=== PATIENT | female | born 1980 | race Caucasian/White ===

== ENCOUNTER 2022-08-18 23:08 | Emergency (ER) | payer BC ==
[~2022-08-18] VITALS: Ht 157.5 cm; Wt 65.8 kg
[2022-08-18 23:32] VITALS: BP 149/99
--- NOTE | 2022-08-18 23:32 | NUR ---
BIB FAMILY FOR BILATERAL CP STARTED WITH A PINCHING SENSATION ON THE R SIDE FEW DAYS AGO. PT A/OX4. TOLERATING R/A WELL WITH NO RESP DISTRESS. [facility]
[2022-08-19] MEDS ORDERED: KETOROLAC TROMETHAMINE INJ 60 MG/2 ML VIAL IM ONE
--- NOTE | 2022-08-19 00:10 | NUR ---
PT SIGNED WAIVER
--- NOTE | 2022-08-19 00:29 | NUR ---
CXR DONE AT ROOM
[2022-08-19] MEDS ORDERED: KETOROLAC TROMETHAMINE INJ 30 MG/ML VIAL ONE (00:30)
[2022-08-19] MEDS ORDERED: IBUP-1955 PO (01:12)
--- NOTE | 2022-08-19 01:53 | NUR ---
Patient discharged to home in stable condition. Written and verbal after care instructions given. Patient verbalizes understanding of instruction.
== END 2022-08-19 01:54 | disposition home or self-care (01) ==
LOC: ER 23:11
DX: R07.9 Chest pain, unspecified (principal); Z88.8 Allergy status to other drugs, medicaments and biological substances
CPT/HCPCS: 99283; 71045; 93005; 96372; J1885

== ENCOUNTER 2023-06-28 22:56 | Emergency (ER) | payer BC ==
[~2023-06-28] VITALS: Ht 157.5 cm; Wt 65.8 kg
[~2023-06-28 22:56] MED LIST: IBUP-1955 PO
[2023-06-28 23:14] VITALS: TEMP 97.7
[2023-06-28 23:33] LABS: BASOPHILS % (AUTO) 0.4 % (0.0-2.0); EOSINOPHILS # (AUTO) 0.3 K/uL (0.0-0.7); EOSINOPHILS % (AUTO) 3.3 % (0.0-6.0); HEMATOCRIT 40 % (33-45); HEMOGLOBIN 13.5 g/dL (11.5-14.8); LYMPHOCYTES # (AUTO) 2.7 K/uL (0.8-4.8); LYMPHOCYTES % (AUTO) 29.8 % (20.0-44.0); MEAN CORPUSCULAR HEMOGLOBIN 33 PG (26.0-33.0); MEAN CORPUSCULAR HGB CONC 34 g/dl (31.0-36.0); MEAN CORPUSCULAR VOLUME 97 fL (82-100); MONOCYTES % (AUTO) 11.1 % (2.0-12.0); NEUTROPHILS # (AUTO) 5.1 K/uL (1.8-8.9); NEUTROPHILS % (AUTO) 55.4 % (43.0-81.0); PLATELET COUNT (AUTO) 289 K/uL (150-450); RED BLOOD CELL COUNT(AUTO) 4.15 MIL/uL (4.0-5.2); RED CELL DISTRIBUTION WIDTH 13.4 % (11.5-15.0); WHITE BLOOD COUNT (AUTO) 9.2 K/uL (4.3-11.0)
[2023-06-28] MEDS ORDERED: ONDANSETRON HCL/PF 4 MG/2 ML VIAL ONE (23:41)
[2023-06-28 23:44] LABS: CALCIUM, SERUM 9.6 mg/dL (8.5-10.1); CARBON DIOXIDE 26 mmol/L (21-32); CHLORIDE 97 mmol/L (98-107); CREATININE 0.8 mg/dL (0.6-1.3); GLUCOSE 104 mg/dL (74-106); POTASSIUM 3.1 mmol/L (3.5-5.1); SODIUM SERUM 134 mmol/L (136-145); UREA NITROGEN, BLOOD 8 mg/dL (7-18)
[2023-06-28 23:53] LABS: ALANINE AMINOTRANSFERASE 80 U/L (12-78); ALBUMIN 4.1 g/dL (3.4-5.0); ALCOHOL, BLOOD < 3 mg/dL (0-10); ALKALINE PHOSPHATASE 97 U/L (46-116); ASPARTATE AMINOTRANSFERASE 77 U/L (15-37); BILIRUBIN,TOTAL 0.4 mg/dL (0.2-1.0); NT-PRO BNP 71 pg/mL (0-125); TOTAL PROTEIN, SERUM 8.2 g/dL (6.4-8.2)
[2023-06-29 00:13] LABS: APPEARANCE,URINE CLEAR (CLEAR); BILIRUBIN,URINE NEGATIVE (NEGATIVE); BLOOD, URINE TRACE-INTA Ery/uL (NEGATIVE); COLOR,URINE YELLOW (YELLOW); KETONES,URINE NEGATIVE (NEGATIVE); LEUKOCYTE ESTERASE ,URINE NEGATIVE (NEGATIVE); NITRITE, URINE NEGATIVE (NEGATIVE); PREGNANCY TEST URINE QUAL NEGATIVE (NEGATIVE); PROTEIN,URINE NEGATIVE (NEGATIVE); UGLUCOSE NEGATIVE (NEGATIVE); UROBILINOGEN,URINE 0.2 EU/dL (0.2)
[2023-06-29 00:14] LABS: ADD URINE CULTURE NO; BACTERIA,URINE Rare /HPF (None Seen); RBC,URINE 0-2 /HPF (0-2); SQUAMOUS EPITHELIAL CELL,UR Few /HPF (None Seen); WBC,URINE 0-2 /HPF (0-3)
[2023-06-29 00:24] LABS: AMPHETAMINE, URINE NEGATIVE (NEGATIVE); BARBITURATE, URINE NEGATIVE (NEGATIVE); BENZODIAZEPINE, URINE NEGATIVE (NEGATIVE); CANNABINOID, URINE NEGATIVE (NEGATIVE); COCCAINE, URINE NEGATIVE (NEGATIVE); OPIATE, URINE NEGATIVE (NEGATIVE); PHENCYCLIDINE SCREEN,URINE NEGATIVE (NEGATIVE)
[2023-06-29 00:59] LABS: LIPASE 24 U/L (16-77); MAGNESIUM 1.6 mg/dL (1.8-2.4)
[2023-06-29] MEDS ORDERED: ONDANSETRON HCL/PF - ER 4 MG/2 ML VIAL IV ONE ×2 (01:00)
[2023-06-29] MEDS ORDERED: ONDANSETRON HCL/PF 4 MG/2 ML VIAL ONE (01:02)
[2023-06-29 01:10] VITALS: BP 147/91; O2SAT 99
[2023-06-29 01:13] LABS: THYROID STIMULATING HORMONE 3.671 uIU/mL (0.358-3.74)
[2023-06-29 01:15] LABS: LACTIC ACID 2.2 mmol/L (0.4-2.0)
[2023-06-29] MEDS ORDERED: diphenhydrAMINE HCL 50 MG/ML VIAL IV ONE (01:30)
[2023-06-29] MEDS ORDERED: CEFTRIAXONE 1 G in IV D5W 50 ML IV ONE (01:30)
[2023-06-29] MEDS ORDERED: methylPREDNISolone SOD SUCC 125 MG/2ML VIAL IV ONE (01:30)
[2023-06-29] MEDS ORDERED: CEFTRIAXONE 1GM BAG (ER ONLY) 50 ML IV ONE (02:11)
[2023-06-29] MEDS ORDERED: POTASSIUM CHLORIDE 20 MEQ TAB.PRT.SR PO ONE ×2 (02:30→02:31)
[2023-06-29] MEDS ORDERED: Magnesium 1GM/D5W 100ML PREMIX 100 ML IV SCH (02:30)
[2023-06-29] MEDS ORDERED: Magnesium 1GM/D5W 100ML PREMIX 100 ML IV ONE (02:31)
[2023-06-29 02:34] LABS: BILIRUBIN,DIRECT 0.2 mg/dL (0.0-0.2)
[2023-06-29 02:38] LABS: LACTIC ACID REFLEX 1.3 mmol/L (0.4-1.9)
== END 2023-06-29 04:19 | disposition left against medical advice (07) ==
LOC: ER 22:57
DX: R00.2 Palpitations (principal); Z88.8 Allergy status to other drugs, medicaments and biological substances
CPT/HCPCS: 99285; 96375; 93005; 71045; 85025; 83605 ×2; 83690; 83735; 85378; 84703; 81001; 36415 ×2; 84443; 80053; 84484; 83880; 80320; 80307; 96365; 96367; 82248; 87040; J2405; J0696 ×2; J7060; A4223; J3475; G0480